=== PATIENT | female | born 1980 | race Caucasian/White ===

== ENCOUNTER 2016-08-08 20:03 | Observation (INO) | payer OTHER ==
[2016-08-08] MEDS ORDERED: RANITIDINE HCL150 M2 PO (20:15)
[2016-08-08] MEDS ORDERED: PRENA1 CHEW TA1.4 M1 PO (20:15)
[2016-08-08] MEDS ORDERED: IMITREX100 M2 PO (21:04)
[2016-09-02] MEDS ORDERED: IBUPROFEN800 M1 PO (00:17)
[2016-09-02] MEDS ORDERED: PERCOCET 5-3251 EACH PO (00:18)
== END 2016-08-08 23:55 ==
LOC: LDR 20:03
PROVIDERS: ADMIT Obstetrics & Gynecology
DX: O47.03 False labor before 37 completed weeks of gestation, third trimester (principal); Z3A.34 34 weeks gestation of pregnancy; Z88.0 Allergy status to penicillin; Z79.899 Other long term (current) drug therapy
CPT/HCPCS: J3105; J7121